=== PATIENT | female | born 2000 | race Caucasian/White ===

== ENCOUNTER 2023-04-18 16:52 | Emergency (ER) | payer BC ==
[~2023-04-18] VITALS: Ht 160 cm; Wt 68.0 kg
[2023-04-18] MEDS ORDERED: SWABABLE VALVE TRANSFER SET EA MC ONE (19:49)
[2023-04-18] MEDS ORDERED: IOHEXOL 300MG/ML 100 ML INFUS..BTL ONE (19:49)
[2023-04-18] MEDS ORDERED: IV NORMAL SALINE 250 ML IV ONE (19:49)
[2023-04-18 20:55] VITALS: BP 117/78; TEMP 98.2; O2SAT 99
== END 2023-04-18 20:50 | disposition home or self-care (01) ==
LOC: ER 17:00
DX: M79.602 Pain in left arm (principal)
CPT/HCPCS: 99285; 73201; 93971; 73030; 73060; Q9967; A4606; A4663